=== PATIENT | male | born 1955 | race African-American/Black ===

== ENCOUNTER 2018-10-28 09:38 | Emergency (ER) | payer MEDICARE, OTHER ==
[~2018-10-28] VITALS: Ht 170.2 cm; Wt 82.0 kg
[2018-10-28] MEDS ORDERED: KETOROLAC 60MG/2ML VIAL IM ONE (10:30)
[2018-10-28 11:10] VITALS: BP 162/104
== END 2018-10-28 11:11 | disposition home or self-care (01) ==
LOC: ER 09:38
DX: J20.9 Acute bronchitis, unspecified (principal); I10 Essential (primary) hypertension; E11.9 Type 2 diabetes mellitus without complications; F17.200 Nicotine dependence, unspecified, uncomplicated; Z88.3 Allergy status to other anti-infective agents
CPT/HCPCS: 96372; 99283; J1885